=== PATIENT | male | born 1980 | race Caucasian/White ===

== ENCOUNTER → 2023-03-24 | Outpatient (CLI) | payer BC ==
[2023-03-24 17:28] LABS: CALCIUM 9.6 mg/dL (8.3-10.5)
[2023-03-27 09:07] LABS: CREATININE OTHER SOURCE 42 mg/dL (47-110)
== END ==
LOC: LAB 17:04
PROVIDERS: Family Medicine
DX: Z13.1 Encounter for screening for diabetes mellitus (principal); I10 Essential (primary) hypertension

== ENCOUNTER → 2023-06-01 | Outpatient (CLI) | payer BC | LOC: LAB 18:24 | DX: R30.0 Dysuria (principal) ==

== ENCOUNTER → 2023-10-06 | Outpatient (CLI) | payer BC | LOC: LAB 11:24 | PROVIDERS: Family Medicine | DX: I10 Essential (primary) hypertension (principal) ==

== ENCOUNTER → 2024-04-22 | Outpatient (CLI) | payer BC ==
[2024-04-22 12:21] LABS: CALCIUM 10.1 mg/dL (8.3-10.5)
== END ==
LOC: LAB 12:01
PROVIDERS: Family Medicine
DX: I10 Essential (primary) hypertension (principal)